=== PATIENT | male | born 2000 | race Caucasian/White ===

== ENCOUNTER 2022-03-22 09:19 | Observation (INO) ==
[2022-03-22 10:12] LABS: Basophils # (auto) 0.01 K/uL (0-0.2); Basophils % (auto) 0.2 %; Eosinophils # (auto) 0.03 K/uL (0-0.50); Eosinophils % (auto) 0.6 %; Hematocrit (blood only) 46.8 % (40.1-51.0); Hemoglobin 16.8 g/dl (14.0-18.0); Immature Granulocytes # (auto) 0.01 K/uL (0.00-0.02); Immature Granulocytes % (auto) 0.2 %; Lymphocytes # (auto) 1.61 K/uL (1.2-3.4); Lymphocytes % (auto) 34.8 %; Mean Corpuscular Hemoglobin 31.9 pg (25.0-34.0); Mean Corpuscular Hgb Conc 35.9 g/dL (32.0-36.0); Mean Platelet Volume 10.1 fL (9.4-12.4); Monocytes # (auto) 0.54 K/uL (0.24-0.82); Monocytes % (auto) 11.7 %; Neutrophils # (auto) 2.43 K/uL (1.4-6.5); Neutrophils % (auto) 52.5 %; Platelet Count 160 K/uL (130-400); RDW Coefficient of Variation 12.1 % (11.5-14.5); RDW Standard Deviation 39.4 fL (36.4-46.3); Red Blood Count 5.26 M/uL (4.63-6.08); White Blood Count 4.63 K/ul (4.8-10.8)
[2022-03-22] MEDS ORDERED: SODIUM CHLORIDE 0.9% 1000ML 1,000 ML IV SCH (10:28)
[2022-03-22] MEDS ORDERED: KETOROLAC TROMETHAMINE 15 MG/ML VIAL IV ONE (10:29)
--- NOTE | 2022-03-22 10:33 | Emergency Department Note ---
Impression & Plan Abdominal pain, Transaminitis, Elevated bilirubin ED Provider Note NAME: BLACK SMITH AGE: 22 SEX: M : 2000 ARRIVES VIA: Walk-In INFORMANT: Patient ED PROVIDER(S): Chandu Sands DO CHIEF COMPLAINT: abdominal pain HPI: Patient is a 22-year-old male who presents ER for right upper quadrant abdominal pain. Started last in the left upper quadrant. It has now radiated over to the right upper quadrant. He feels better depending on what side he is lying on. Denies any dysuria, urgency, or frequency. No other exacerbating or remitting factors. No previous abdominal surgeries. Pain is currently 6 out of 10 ROS: See above HPI for pertinent positives & negatives. A total of 10 systems reviewed and were otherwise negative. PAST MEDICAL HISTORY:See Below PAST SURGICAL HISTORY:See Below FAMILY HISTORY:See Below SOCIAL HISTORY:See Below HOME MEDICATIONS:See Below ALLERGIES:See Below VITALS:See Below PHYSICAL EXAMINATION: GENERAL: Sitting up in bed, alert, well appearing, well nourished, no distress, non-toxic EYE EXAM: normal conjunctiva. OROPHARYNX: no exudate, no erythema, lips, buccal mucosa, and tongue normal and mucous membranes are moist NECK: supple, no nuchal rigidity, no adenopathy, non-tender LUNGS: Clear to auscultation. Normal chest wall mechanics HEART: no murmurs, S1 normal and S2 normal ABDOMEN: abdomen soft, right upper quadrant abdominal pain, normo-active bowel sounds, no masses, no rebound or guarding. UPPER EXTREMITIES: upper extremities are grossly normal. LOWER EXTREMITIES: No pitting edema. NEURO EXAM: Normal sensorium, cranial nerves II-XII grossly intact, normal speech, no gross weakness of arms, no gross weakness of legs. MEDICAL DECISION MAKING: Patient is a 22-year-old male who presents ER for right upper quadrant abdominal pain. IV was established blood work was obtained. Labs show no significant leukocytosis but a mild leukopenia 4. No anemia. Platelets were appropriate. D-dimer was negative. BMP with a T bili of 2.4 and LFTs of 80-90. Troponin was negative. Lipase was normal. UA was clean. COVID was negative. CT abdomen pelvis was unremarkable. Discussed with Dr. Gilbert recommended discussing with the hospitalist and ordering an MRCP for further evaluation. Patient was given IV fluids and Toradol and updated bedside. Triage Nursing notes reviewed. Limited review of prior medical records performed Vital Signs: reviewed and remarkable for HTN Differential diagnosis: Differential diagnoses includes but is not limited to gastritis, peptic ulcer disease, GERD, gallbladder disease, pancreatitis, small bowel obstruction, acute coronary syndrome, pericarditis, ischemic bowel, irritable bowel disease, irritable bowel syndrome, appendicitis, diverticulitis, malignancy, hernia, uri nary tract infection, torsion, perforation, trauma, infectious. ER treatment provided: See below Diagnostics interpreted by me: ECG: none Cardiac Monitoring: An order was placed for continuous cardiac monitoring. The monitor shows a rate of 70 with sinus rhythm. Laboratory studies: As stated above and show below. Imaging studies: CT abdomen pelvis was unremarkable Consultation(s): Discussed with Dr. Gilbert from gastroenterology who recommended MRCP and discussion with the hospitalist for further evaluation Discussed with Tal Dockery from [facility] [place] Divisionist service. Procedures: none Critical Care: None Past Med/Surg History Social History Smoking Status: Never smoker Feels Safe at Home: Yes Results & Data (ED) Vital Signs Vital Signs - 24 hr 03/22/22 09:43 03/22/22 11:11 03/22/22 13:09 Temperature 36.8 C Temperature Source Temporal Artery Scan Pulse Rate 84 Pulse Rate [Apical] 65 61 Pulse Rhythm [Apical] Regular Pulse Strength [Apical] Respiratory Rate 89 H 16 16 Respiratory Effort / Characteristics Respiratory Depth Respiratory Pattern Blood Pressure 150/100 H Blood Pressure [Left Arm] 145/91 H Blood Pressure Mean 116 Blood Pressure Mean [Left Arm] 109 Blood Pressure Position [Left Arm] Pulse Oximetry 98 96 97 Oxygen Delivery Method Room Air Room Air Sepsis Recent Fever Within 48 Hours No Sepsis New/Unexplained Change in Mental Status No Sepsis Action Taken by Nursing No Action Required 03/22/22 15:00 Temperature Temperature Source Pulse Rate Pulse Rate [Apical] 64 Pulse Rhythm [Apical] Regular Pulse Strength [Apical] Normal Respiratory Rate 18 Respiratory Effort / Characteristics Non-Labored Respiratory Depth Normal Respiratory Pattern Regular Blood Pressure Blood Pressure [Left Arm] 131/81 Blood Pressure Mean Blood Pressure Mean [Left Arm] 97 Blood Pressure Position [Left Arm] Lying Pulse Oximetry 98 Oxygen Delivery Method Room Air Sepsis Recent Fever Within 48 Hours Sepsis New/Unexplained Change in Mental Status Sepsis Action Taken by Nursing Laboratory Data Result diagrams: 03/22/22 09:56 03/22/22 09:56 Lab Results 03/22/22 03/22/22 03/22/22 Range/Units 09:56 09:56 09:56 WBC 4.63 L (4.8-10.8) K/ul RBC 5.26 (4.63-6.08) M/uL Hgb 16.8 (14.0-18.0) g/dl Hct 46.8 (40.1-51.0) % MCV 89.0 (80.0-100.0) fL MCH 31.9 (25.0-34.0) pg MCHC 35.9 (32.0-36.0) g/dL RDW Std Deviation 39.4 (36.4-46.3) fL RDW Coeff of Wanda 12.1 (11.5-14.5) % Plt Count 160 (130-400) K/uL MPV 10.1 (9.4-12.4) fL Immature Gran % (Auto) 0.2 % Neut % (Auto) 52.5 % Lymph % (Auto) 34.8 % [place] % (Auto) 11.7 % Eos % (Auto) 0.6 % Baso % (Auto) 0.2 % Neut # (Auto) 2.43 (1.4-6.5) K/uL Lymph # (Auto) 1.61 (1.2-3.4) K/uL [place] # (Auto) 0.54 (0.24-0.82) K/uL Eos # (Auto) 0.03 (0-0.50) K/uL Baso # (Auto) 0.01 (0-0.2) K/uL Immature Gran # (Auto) 0.01 (0.00-0.02) K/uL D-Dimer 310 (0-500) ug/L FEU Sodium 138 (136-145) mmol/L Potassium 3.6 (3.5-5.1) mmol/L Chloride 103 (98-107) mmol/L Carbon Dioxide 27 (21-32) mmol/L Anion Gap 8 (3-11) BUN 22 (6-23) mg/dl Creatinine 1.14 (0.6-1.4) mg/dl Est Cr Clr Drug Dosing 122.5 ml/min Est GFR ( Amer) 106.0 ml/min Est GFR (Non-Af Amer) 91.4 ml/min BUN/Creatinine Ratio 19.3 (10-20) Glucose 84 (70-99(Fasting)) mg/dl Calcium 9.8 (8.5-10.1) mg/dl Total Bilirubin 2.4 H (0.2-1.0) mg/dl AST 87 H (13-39) U/L ALT 66 H (7-52) U/L Alkaline Phosphatase 81 (34-104) U/L Troponin I High Sens (0-20) pg/ml Total Protein 7.7 (6.0-8.3) gm/dl Albumin 4.8 (3.4-5.0) gm/dl Globulin 2.9 (2.5-4.0) gm/dl Albumin/Globulin Ratio 1.7 (0.9-2) Lipase 30 (11-82) U/L Urine Color Urine Appearance (Clear) Urine pH (4.5-7.5) Ur Specific [place] (1.000-1.030) Urine Protein (Negative) Urine Glucose (UA) (Negative) Urine Ketones (Negative) Urine Blood (Negative) Urine Nitrite (Negative) Urine Bilirubin (Negative) Urine Urobilinogen (Negative) Ur Leukocyte Esterase (Negative) Urine WBC (Auto) (0-5) /hpf Urine RBC (Auto) (0-4) /hpf U Hyaline Cast (Auto) (0-5) /lpf U Epithel Cells (Auto) (0-5) /lpf Urine Bacteria (Auto) (Negative) 03/22/22 03/22/22 Range/Units 09:56 10:30 WBC (4.8-10.8) K/ul RBC (4.63-6.08) M/uL Hgb (14.0-18.0) g/dl Hct (40.1-51.0) % MCV (80.0-100.0) fL MCH (25.0-34.0) pg MCHC (32.0-36.0) g/dL RDW Std Deviation (36.4-46.3) fL RDW Coeff of Wanda (11.5-14.5) % Plt Count (130-400) K/uL MPV (9.4-12.4) fL Immature Gran % (Auto) % Neut % (Auto) % Lymph % (Auto) % [place] % (Auto) % Eos % (Auto) % Baso % (Auto) % Neut # (Auto) (1.4-6.5) K/uL Lymph # (Auto) (1.2-3.4) K/uL [place] # (Auto) (0.24-0.82) K/uL Eos # (Auto) (0-0.50) K/uL Baso # (Auto) (0-0.2) K/uL Immature Gran # (Auto) (0.00-0.02) K/uL D-Dimer (0-500) ug/L FEU Sodium (136-145) mmol/L Potassium (3.5-5.1) mmol/L Chloride (98-107) mmol/L Carbon Dioxide (21-32) mmol/L Anion Gap (3-11) BUN (6-23) mg/dl Creatinine (0.6-1.4) mg/dl Est Cr Clr Drug Dosing ml/min Est GFR ( Amer) ml/min Est GFR (Non-Af Amer) ml/min BUN/Creatinine Ratio (10-20) Glucose (70-99(Fasting)) mg/dl Calcium (8.5-10.1) mg/dl Total Bilirubin (0.2-1.0) mg/dl AST (13-39) U/L ALT (7-52) U/L Alkaline Phosphatase (34-104) U/L Troponin I High Sens 8.4 (0-20) pg/ml Total Protein (6.0-8.3) gm/dl Albumin (3.4-5.0) gm/dl Globulin (2.5-4.0) gm/dl Albumin/Globulin Ratio (0.9-2) Lipase (11-82) U/L Urine Color Dark Yellow Urine Appearance Clear (Clear) Urine pH 6.0 (4.5-7.5) Ur Specific [place] 1.034 H (1.000-1.030) Urine Protein Trace H (Negative) Urine Glucose (UA) Negative (Negative) Urine Ketones 1+ H (Negative) Urine Blood Negative (Negative) Urine Nitrite Negative (Negative) Urine Bilirubin Negative (Negative) Urine Urobilinogen Negative (Negative) Ur Leukocyte Esterase Negative (Negative) Urine WBC (Auto) 1-5 (0-5) /hpf Urine RBC (Auto) 0-4 (0-4) /hpf U Hyaline Cast (Auto) 1-5 (0-5) /lpf U Epithel Cells (Auto) 0-5 (0-5) /lpf Urine Bacteria (Auto) Negative (Negative) Administered Medications Discontinued Medications Sodium Chloride (Nss 1000ml) 1,000 mls @ 999 mls/hr IV .Q1H1M CA Stop: 03/22/22 11:28 Last Infusion: 03/22/22 12:33 Dose: 0 mls/hr Documented By: Admin: 03/22/22 11:18 Dose: 999 mls/hr Documented By: KV Sodium Chloride (Nss 1000ml) 1,000 mls @ 999 mls/hr IV .Q1H1M ONE Stop: 03/22/22 15:40 Last Admin: 03/22/22 14:48 Dose: 999 mls/hr Documented By: KV Ioversol (Optiray 300 100ml) 94 ml IV ONCE ONE Stop: 03/22/22 12:36 Last Admin: 03/22/22 12:36 Dose: 94 ml Documented By: SEJ Ketorolac Tromethamine (Ketorolac Tromethamine 15 Mg/Ml Vial) 15 mg IV NOW ONE Stop: 03/22/22 10:30 Last Admin: 03/22/22 11:18 Dose: 15 mg Documented By: KV Imaging Data Radiologist's Impression: Abdomen/Pelvis CT 03/22/22 11:[address] WITH IV CONTRAST CT DOSE: 794.51 mGycm HISTORY: Right upper quadrant pain. Mid epigastric pain. Left sided abdominal pain. TECHNIQUE: Multiaxial CT images of the abdomen and pelvis were performed following the use of intravenous contrast. A dose lowering technique was uti lized adhering to the principles of ALARA. COMPARISON STUDY: None. FINDINGS: The lung bases are clear. No pneumoperitoneum. No pneumatosis. No fractures within the visualized osseous structures. The liver, gallbladder, pancreas, spleen, adrenal glands, and kidneys are unremarkable. No hydronephrosis. No retroperitoneal lymphadenopathy. Normal caliber abdominal aorta. The main portal vein is patent. The bladder is decompressed but appears unremarkable. Minimal pelvic free fluid. This is of doubtful clinical significance. No bowel wall thickening or obstruction. Normal appendix. The colon is decompressed resulting in suboptimal evaluation for bowel wall thickening. IMPRESSION: No significant abnormality identified within the abdomen or pelvis. ACT 112: Negative or not required by law. Electronically signed by: Jakub Pan M.D. 03/22/2022 1:02 PM Discharge Plan Visit Data Chief Complaint: Abdominal Pain Stated Complaint: ABD PAIN ED Provider: Chandu Sands Discharge Problem: Abdominal pain, Transaminitis, Elevated bilirubin Forms Stand Alone Forms: [facility] Referrals Referrals: PCP,NO [Primary Care Provider] -
[2022-03-22 10:39] LABS: Albumin Globulin Ratio 1.7 (0.9-2); Albumin Level 4.8 gm/dl (3.4-5.0); BUN Creatinine Ratio 19.3 (10-20); Bilirubin,Total 2.4 mg/dl (0.2-1.0); Calcium 9.8 mg/dl (8.5-10.1); Creatinine Clr Calc Pharmacy 122.5 ml/min; Est GFR (Non-African American) 91.4 ml/min; Globulin 2.9 gm/dl (2.5-4.0); Potassium 3.6 mmol/L (3.5-5.1); Total Protein 7.7 gm/dl (6.0-8.3)
[2022-03-22 10:49] LABS: D Dimer 310 ug/L FEU (0-500)
[2022-03-22 10:52] LABS: Appearance Urine Clear (Clear); Bacteria Urine Automated Negative (Negative); Bilirubin Urine Negative (Negative); Blood Urine Negative (Negative); Color Urine Dark Yellow; Epithelial Cell Urine Auto 0-5 /lpf (0-5); Glucose Urine UA Negative (Negative); Ketones Urine 1+ (Negative); Leukocyte Esterase Urine Negative (Negative); Nitrite Urine Negative (Negative); Protein Urine Trace (Negative); RBC Urine Automated 0-4 /hpf (0-4); Specific Gravity Urine 1.034 (1.000-1.030); Urobilinogen Urine Negative (Negative)
[2022-03-22] MEDS ORDERED: OPTIRAY 300 100mL IV ONE (12:35)
--- NOTE | 2022-03-22 12:50 | Electrocardiogram Report ---
Test Reason : Blood Pressure : / mmHG Vent. Rate : 078 BPM Atrial Rate : 078 BPM P-R Int : 164 ms QRS Dur : 088 ms QT Int : 388 ms P-R-T Axes : 050 066 -07 degrees QTc Int : 442 ms Sinus rhythm with marked sinus arrhythmia Nondiagnostic inferior Q waves Abnormal ECG No previous ECGs available Confirmed by Herbert Love ([id number]) on 03/22/2022 12:50:37 PM Referred By: REFERRED SELF Confirmed By:Herbert Love
--- NOTE | 2022-03-22 13:05 | CT Scan Report ---
ABDOMEN AND PELVIS CT WITH IV CONTRAST CT DOSE: 794.51 mGycm HISTORY: Right upper quadrant pain. Mid epigastric pain. Left sided abdominal pain. TECHNIQUE: Multiaxial CT images of the abdomen and pelvis were performed following the use of intrave nous contrast. A dose lowering technique was utilized adhering to the principles of ALARA. COMPARISON STUDY: None. FINDINGS: The lung bases are clear. No pneumoperitoneum. No pneumatosis. No fractures within the visu alized osseous structures. The liver, gallbladder, pancreas, spleen, adrenal glands, and kidneys are unremarkable. No hydronephrosis. No retroperitoneal lymphadenopathy. Normal caliber abdominal aorta. The main portal vein is patent. The bladder is decompressed but appears unremarkable. Minimal pelvic free fluid. This is of doubtful clinical significance. No bowel wall thickening or obstruction. Hanh l appendix. The colon is decompressed resulting in suboptimal evaluation for bowel wall thickening. IMPRESSION: No significant abnormality identified within the abdomen or pelvis. ACT 112: Negative or not required by law. Electronically signed by: Jakub Pan M.D. 03/22/2022 1:02 PM
[2022-03-22] MEDS ORDERED: SODIUM CHLORIDE 0.9% 1000ML 1,000 ML IV ONE (14:40)
--- NOTE | 2022-03-22 15:18 | History & Physical Report ---
Date of Service March 22, 2022 Assessment & Plan (1) Transaminitis: Plan: Arsenio is a 22-year-old male who presents with 4-5 days of right upper quadrant pain after an episode of binge drinking. His pain is somewhat alleviated with left lateral decubitus position, is not worsened by meals, and he has not had diarrhea. Transaminitis Bilirubin 2.4, AST 87, ALT 66 CTA/P without acute findings Right upper quadrant ultrasound pending Hepatitis panel pending Patient does endorse that he turned 22 recently, has been drinking several times a week up to 10 beers in the setting. DDx includes biliary disease and alcohol induced liver injury Trend CMP, no signs of fulminant failure at this time Total bili/direct bili pending Troponin normal, creatinine normal N.p.o. pending liver ultrasound, then may resume regular diet. - EKG: Normal sinus rhythm. Nondiagnostic inferior Q waves. No history of shortness of breath, chest pain, chest pressure Vape Patient reports he vapes at least twice a day, several times a week. Counseled on the risk of vaping induced lung injury, cessation recommended Chronic medical problems, takes no medications DVT prophylaxis: SCDs, ambulate Diet: N.p.o. pending gallbladder ultrasound, then regular Disposition: Medical surgical Observation History of Present Illness Primary Care Provider: NO PCP Marie a 22yo male no past medical history presents with right upper quadrant pain of 3 to 4 days radiating to the right upper quadrant. CTA/P shows no acute abnormality. He has a elevated bilirubin to 2.4, new transaminitis to 87/86. Alk phos is not elevated. Troponin is normal. UA does not appear infected. Pain upper L abdomen now spreading over the upper R. Tuesday night rapidly began worsening. Has not noticed that food makes it worse Laying on his back/stretching worsens pain. Somewhat better laying. 4/10 achy and 'hurts' at present, 6-7/10 at worst BMs have been more frequency, no light/bouchra colored stool. More liquid than normal. No problems with greasy/fatty food No fevers, chills. [place] sweats/hot flashes yesterday none today No cough or respiratory sx No sob, chest pain, or chest pressure Medical History: Reviewed. None. Medications: Reviewed. None Surgical History: Reviewed Allergies: Reviewed. None Social History: Vapes twice a day most days or week. EtoH every other day during the summer, no alcohol since . Turned 22 in December. Beers ~10 beers sitting. Occasional Marijuana use. Code Status: Full Code. EKG: Normal sinus rhythm. Nondiagnostic inferior Q waves. Past Med/Surg History Social History Smoking Status: Never smoker Feels Safe at Home: Yes Review of Systems Review of Systems: All systems reviewed & are unremarkable except as noted in Subjective Physical Exam Physical Exam: General: A&Ox3. NAD. Cooperative. HEENT: Atraumatic, normocephalic. Vision.hearing intact Pulm: CTAB A&P. -wheezes, -rales, -rhonchi. Symmetrical chest rise. No increased work of breathing. No respiratory distress. Cardiac: RRR, -mrg. Radial pulses intact and symmetrical. Abdominal: RUQ TTP, mild TTP LUQ. No guarding. Nondistended, soft. BS present. Results & Data Results & Data ([facility]) Vital Signs (Past 12 Hours) Vital Signs Temp Pulse Pulse Resp BP BP Pulse Ox 03/22/22 13:09 61 16 97 03/22/22 11:11 65 16 145/91 H 96 03/22/22 09:43 36.8 C 84 89 H 150/100 H 98 O2 Del Method 03/22/22 13:09 Room Air 03/22/22 11:11 03/22/22 09:43 Room Air PG Care Time/CCT Total # of Minutes Spent Total Time Spent with Patient: Total time spent is greater than 50% in coordination of care (as documented) at patient's floor/unit and/or counseling patient: Coding Level of Care Code INT OBSERVATION CARE 50M LVL 2 Diagnoses Transaminitis R74.01
[2022-03-22 19:13] LABS: Albumin Level 4.2 gm/dl (3.4-5.0); Bilirubin Direct 0.3 mg/dl (0-0.2); Bilirubin,Total 1.9 mg/dl (0.2-1.0); Total Protein 6.6 gm/dl (6.0-8.3)
[2022-03-22] MEDS: Patient's ALLERGY Info needs ENTERED SCH ×5 (20:02→23:50)
[2022-03-22] MEDS ORDERED: KETOROLAC TROMETHAMINE 15 MG/ML VIAL IV PRN (20:06)
--- NOTE | 2022-03-23 08:25 | Ultrasound Report ---
ULTRASOUND RIGHT UPPER QUADRANT ABDOMEN CLINICAL HISTORY: Elevated transaminases. COMPARISON STUDY: Abdominal CT dated 03/22/2022. TECHNIQUE: Real-time, grayscale, and color flow sonography of the right upper quadrant of the abdomen was performed. Images are reviewed in the transverse and longitudinal planes. FINDINGS: Liver: The liver is normal in size and echotexture. There is no intrahepatic biliary ductal dilatatio n. The main portal vein is patent. Gallbladder: The gallbladder is normal in appearance. No gallstones are identified. There is no gallb ladder wall thickening or pericholecystic fluid. A sonographic Esposito's sign is reportedly absent. Th e common bile duct measures up to 0.3 cm in diameter. Pancreas: Visualized portions of the pancreatic head and body are normal in appearance. The splenic v ein is patent. Right kidney: Survey images of the right kidney demonstrate normal size and echotexture. There is no hydronephrosis. Ascites: None. IMPRESSION: Unremarkable sonographic examination of the right upper quadrant. No gallstones are ident ified. ACT 112: Negative or not required by law. Electronically signed by: Silvino Mckeon M.D. 03/23/2022 8:24 AM
[2022-03-23 08:26] LABS: Basophils # (auto) 0.01 K/uL (0-0.2); Basophils % (auto) 0.2 %; Eosinophils # (auto) 0.04 K/uL (0-0.50); Eosinophils % (auto) 0.9 %; Hematocrit (blood only) 41.8 % (40.1-51.0); Hemoglobin 15.4 g/dl (14.0-18.0); Immature Granulocytes # (auto) 0.01 K/uL (0.00-0.02); Immature Granulocytes % (auto) 0.2 %; Lymphocytes # (auto) 1.81 K/uL (1.2-3.4); Mean Corpuscular Hemoglobin 32.4 pg (25.0-34.0); Mean Corpuscular Hgb Conc 36.8 g/dL (32.0-36.0); Mean Corpuscular Volume 87.8 fL (80.0-100.0); Mean Platelet Volume 10.7 fL (9.4-12.4); Monocytes # (auto) 0.46 K/uL (0.24-0.82); Monocytes % (auto) 10.4 %; Neutrophils # (auto) 2.09 K/uL (1.4-6.5); Neutrophils % (auto) 47.3 %; Platelet Count 142 K/uL (130-400); RDW Standard Deviation 38.8 fL (36.4-46.3); Red Blood Count 4.76 M/uL (4.63-6.08); White Blood Count 4.42 K/ul (4.8-10.8)
[2022-03-23 08:34] LABS: INR 1.1 (0.9-1.1); Prothrombin Time 11.8 Seconds (9.0-12.0)
[2022-03-23 08:55] LABS: Albumin Globulin Ratio 1.6 (0.9-2); BUN Creatinine Ratio 16.5 (10-20); Bilirubin Direct 0.2 mg/dl (0-0.2); Bilirubin,Total 1.7 mg/dl (0.2-1.0); Calcium 8.9 mg/dl (8.5-10.1); Creatinine Clr Calc Pharmacy 135.6 ml/min; Est GFR (African American) 119.8 ml/min; Est GFR (Non-African American) 103.4 ml/min; Globulin 2.5 gm/dl (2.5-4.0); Potassium 3.8 mmol/L (3.5-5.1); Total Protein 6.5 gm/dl (6.0-8.3)
--- NOTE | 2022-03-23 10:42 | Discharge Summary ---
Date of Service March 23, 2022 Admission HPI Per Admitting Provider Cynthia major 22yo male no past medical history presents with right upper quadrant pain of 3 to 4 days radiating to the right upper quadrant. CTA/P shows no acute abnormality. He has a elevated bilirubin to 2.4, new transaminitis to 87/86. Alk phos is not elevated. Troponin is normal. UA does not appear infected. Pain upper L abdomen now spreading over the upper R. Tuesday night rapidly began worsening. Has not noticed that food makes it worse Laying on his back/stretching worsens pain. Somewhat better laying. 4/10 achy and 'hurts' at present, 6-7/10 at worst BMs have been more frequency, no light/bouchra colored stool. More liquid than normal. No problems with greasy/fatty food No fevers, chills. [place] sweats/hot flashes yesterday none today No cough or respiratory sx No sob, chest pain, or chest pressure Medical History: Reviewed. None. Medications: Reviewed. None Surgical History: Reviewed Allergies: Reviewed. None Social History: Vapes twice a day most days or week. EtoH every other day during the summer, no alcohol since . Turned 22 in December. Beers ~10 beers sitting. Occasional Marijuana use. Code Status: Full Code. EKG: Normal sinus rhythm. Nondiagnostic inferior Q waves. Principal Diagnosis Transaminitis secondary to alcohol intake Discharge Exam Constitutional WD/WN, vitals as above Respiratory normal respiratory effort, lungs clear to auscultation Cardiovascular RRR, no murmur, no edema Gastrointestinal (Abdomen) normal bowel sounds, soft, nontender, no hepatosplenomegaly Discharge Data Allergies Allergy/AdvReac Type Severity Reaction Status Date / Time No Known Allergies Allergy Unverified 03/22/22 20:04 Consultations 03/22/22 14:40 ED Decision to Admit Stat Ordered Studies 03/22/22 11:53 CT Abd and Pelvis [CT abd pelvis IV con only] Stat IMPRESSION: No significant abnormality identified within the abdomen or pelvis. 03/23/22 15:30 US liver Stat IMPRESSION: Unremarkable sonographic examination of the right upper quadrant. No gallstones are identified. Hospital Course (1) Transaminitis: Arsenio Leung is a 22 year old male observed at [facility] from March 22 to 2021 due to elevated liver transaminases and right upper quadrant pain. Liver ultrasound and CT were unremarkable. Suspect these elevations are secondary to alcohol intake and are improving on discharge. He was advised to Recommend vastly reducing alcohol consumption or complete cessation. Also recommend cessation of vaping. Consider repeating liver function tests in approximately 1 month to check for resolution. Total Time Total Time Spent Total Time Spent (In Minutes): 25 Discharge Plan Discharge Items Patient Disposition: Home - Self-Care Reason For Visit: TRANSAMINITIS Discharge Diagnosis: Transaminitis secondary to alcohol intake Activity: Resume your previous activity Non-emergency contact: Primary Care Provider Call non-emergency contact if: you have any medication questions and your symptoms worsen Follow-up/Referrals: [facility] [Primary Care Provider] - (PATIENT WILL CALL TO SCHEDULE OWN HOSPITAL F/U.) PCP,NO [Physician] - Diet: Regular Addtl Attending Provider Instructions: You are observed at [facility] from March 22 to 2021 due to elevated liver transaminases. Suspect these elevations are secondary to alcohol intake and represent inflammation of the liver. Repeated inflammation of the liver can lead to liver cirrhosis. Recommend vastly reducing alcohol consumption or complete cessation. Also recommend cessation of vaping as this can lead to nicotine dependence, associated lung injury and eosinophilic pneumonia especially with refilled e-cigarette cartridges. Recommend complete alcohol cessation initially and repeating liver functions tests in approximately 1 month to check for resolution. Pending Studies at Discharge: No Stand-Alone Forms: [facility], Work/School Release, Smoking Cessation Medications and DC Order Discharge Orders: Discharge Order (Routine); Ordered 03/23/22 Ordered By: Torito Amato Admission Data Admit Date/Time: 03/22/22 15:30 Attending Provider: Torito Amato Admit Provider: Tal Hammond Primary Care Provider: [facility] Other Providers: Tal Hammond Other Interventions: Discharge Summary Assessment (RN) Last Done: 03/23/22 11:19 Coding Level of Care Code 90025 OBS Care - Discharge Diagnoses Transaminitis R74.01
== END 2022-03-23 12:23 | disposition home or self-care (01) ==
LOC: EDINP 09:19 → ED 09:19 → SUATTDRO 15:30 → 3E 17:55